=== PATIENT | female | born 1960 | race American Indian/Alaskan Native ===

== ENCOUNTER 2017-03-16 17:15 | Emergency (ER) | payer BC ==
[2017-03-16 17:20] VITALS: BP 130/88; PULSE 98; RESP 18; TEMP 97.8; O2SAT 97; BMI 24.9
[2017-03-16] MEDS ORDERED: Oxycodone/Acetaminophen 5/325 mg Tab PO STA (17:30)
[2017-03-16] MEDS ORDERED: Ciprofloxacin/Dexamethasone OTIC SUSP AS STA (17:30)
[2017-03-16] MEDS ORDERED: Amoxicillin-Clav 875-125 mg Tab PO STA (17:31)
--- NOTE | 2017-03-16 17:34 | ED PDOC ---
Arrival/HPI - General Chief Complaint: ENT Problem Time Seen by Provider: 03/16/17 17:25 Historian: Patient - History of Present Illness Narrative History of Present Illness (Text): 03/16/17 17:31 56yo female with no PMHx present with complaint of severe right ear pain since yesterday. she denies trauma, hearing loss, tinnitus, fever, chills, drainage, any other complaint. Past Medical History - Provider Review Nursing Documentation Reviewed: Yes - Reproductive Menopause: Yes - Psychiatric Hx Substance Use: No - Surgical History Hx Tonsillectomy: Yes Family/Social History - Physician Review Nursing Documentation Reviewed: Yes Family/Social History: Unknown Family HX Smoking Status: Never Smoked Hx Alcohol Use: No Hx Substance Use: No Allergies/Home Meds Allergies/Adverse Reactions: Allergies No Known Allergies Allergy (Verified 03/16/17 17:20) Review of Systems - Physician Review All systems were reviewed & negative as marked: Yes - Review of Systems Constitutional: Normal Eyes: Normal ENT: Other (Right ear pain) Respiratory: Normal Cardiovascular: Normal Gastrointestinal: Normal Genitourinary Female: Normal Musculoskeletal: Normal Skin: Normal Neurological: Normal Endocrine: Normal Hemo/Lymphatic: Normal Psychiatric: Normal Physical Exam Vital Signs Reviewed: Yes Vital Signs Temp Pulse Resp BP Pulse Ox 03/16/17 17:17 97.8 F 98 H 18 130/88 97 Temperature: Afebrile Blood Pressure: Normal Pulse: Regular Respiratory Rate: Normal Appearance: Positive for: Well-Appearing, Non-Toxic, Comfortable Pain Distress: None Mental Status: Positive for: Alert and Oriented X 3 - Systems Exam Head: Present: Atraumatic, Normocephalic Pupils: Present: PERRL Extroacular Muscles: Present: EOMI Conjunctiva: Present: Normal Ears: Present: Erythema (Rght TM), TM Bulging (Right TM), Other (suppurative Right TM. Pain with manipulation of right auricle) Mouth: Present: Moist Mucous Membranes Neck: Present: Normal Range of Motion Respiratory/Chest: Present: Clear to Auscultation, Good Air Exchange. No: Respiratory Distress, Accessory Muscle Use Cardiovascular: Present: Regular Rate and Rhythm, Normal S1, S2. No: Murmurs Abdomen: Present: Normal Bowel Sounds. No: Tenderness, Distention, Peritoneal Signs Back: Present: Normal Inspection Upper Extremity: Present: Normal Inspection. No: Cyanosis, Edema Lower Extremity: Present: Normal Inspection. No: Edema Neurological: Present: GCS=15, CN II-XII Intact, Speech Normal Skin: Present: Warm, Dry, Normal Color. No: Rashes Psychiatric: Present: Alert, Oriented x 3, Normal Insight, Normal Concentration Medical Decision Making ED Course and Treatment: 03/16/17 17:36 PT in ED for stated history. she was in moderate pain. She had bulging suppurative TM and pain with manipulation of her right pinna. She will be treated with both oral and otic drop to cover both otitis media/externa. Referred to ENT. TRT ED for any new symptoms. Disposition/Present on Arrival - Present on Arrival Any Indicators Present on Arrival: No History of DVT/PE: No History of Uncontrolled Diabetes: No Urinary Catheter: No History of Decub. Ulcer: No History Surgical Site Infection Following: None - Disposition Have Diagnosis and Disposition been Completed?: Yes Diagnosis: Otitis media, Otitis externa Disposition: HOME/ ROUTINE Disposition Time: 17:35 Patient Plan: Discharge Condition: STABLE Discharge Instructions (ExitCare): Otitis Media (ED) Additional Instructions: Follow up with your doctor/ENT Return to ED for any new or worsening symptoms Prescriptions: Amoxicillin/Clavulanate [Augmentin 875 MG-125 MG] 1 tab PO BID #14 tab Ibuprofen [Motrin Tab] 600 mg PO Q6 #20 tab Referrals: Joel Lopez DO [Staff Provider] - Follow up with primary
== END 2017-03-16 18:07 | disposition home or self-care (01) ==
LOC: ED 17:15
DX: H66.91 Otitis media, unspecified, right ear (principal); H60.91 Unspecified otitis externa, right ear